=== PATIENT | male | born 2005 | race Caucasian/White ===

== ENCOUNTER 2025-01-20 10:40 | Inpatient (IN) ==
[2025-01-20] MEDS: ONDANSETRON INJ 2 MG/ML 2 ML VIAL IV STA (11:16)
[2025-01-20] MEDS: SODIUM CHLORIDE 0.9% 1,000 ML IV SCH (11:16)
[2025-01-20] MEDS: KETOROLAC TROMETHAMINE 15 MG/ML VIAL IV ONE (11:17)
[2025-01-20 11:25] LABS: Hematocrit (blood only) 42.4 % (42.0-52.0); Hemoglobin 14.1 g/dl (14.0-18.0); Mean Corpuscular Hemoglobin 29.1 pg (25.0-34.0); Mean Corpuscular Volume 87.6 fL (80.0-100.0); Platelet Count 280 K/uL (130-400); RDW Standard Deviation 39.3 fL (36.4-46.3); Red Blood Count 4.84 M/uL (4.70-6.10); White Blood Count 21.41 K/ul (4.8-10.8)
[2025-01-20 11:45] LABS: Alanine Aminotransferase 31.0 U/L (7-52); Albumin Globulin Ratio 1.1 (0.9-2); Albumin Level 4.0 gm/dl (3.4-5.0); Alkaline Phosphatase 82.0 U/L (34-104); Anion Gap 7.0 (3-11); Bilirubin,Total 0.7 mg/dl (0.2-1.0); Blood Urea Nitrogen 14.0 mg/dl (6-23); Calcium 9.2 mg/dl (8.6-10.3); Carbon Dioxide 30.0 mmol/L (21-32); Chloride 96.0 mmol/L (98-107); Creatinine Clr Calc Pharmacy 123.0 ml/min; Globulin 3.5 gm/dl (2.5-4.0); Glucose 96.0 mg/dl (70-99(Fasting)); Potassium 4.0 mmol/L (3.5-5.1); Sodium 133.0 mmol/L (136-145); Total Protein 7.5 gm/dl (6.0-8.3)
[2025-01-20 11:50] LABS: ALC (manual) 10.28 K/uL (1.2-3.4); ANC (manual) 9.42 K/uL (1.4-6.5); RBC Morphology Unremarkable; Reactive Lymphocytes # (manual) 5.99 K/uL; Reactive Lymphocytes % (manual) 28 %
--- NOTE | 2025-01-20 12:03 | Emergency Department Note ---
ED Provider Note History of Present Illness Chief Complaint: Throat Pain Stated Complaint: MONO, THROAT PAIN, TROUBLE BREATHING Time Seen by Provider: 01/20/25 11:51 Source: patient Mode of arrival: ambulatory Limitations: no limitations Patient is a 19-year-old male who presents to the emergency department with complaints of persistent and worsening throat pain and difficulty breathing. Patient states that he was diagnosed with mono at [facility] and given a taper course of prednisone but reports that his symptoms have not improved and he feels that they may have significant somewhat worsened. Patient states that it is painful to swallow and he has a lot of saliva production but does not have any significant difficulty breathing. Patient is concerned that there could be something more going on than just the mono. Patient denies any abdominal pain, nausea or chest pain. Home Medications Medication Instructions Recorded Confirmed Type cetirizine 10 mg tablet 10 mg PO DAILY 01/20/25 01/20/25 History dexmethylphenidate 20 mg 20 mg PO DAILY 01/20/25 01/20/25 History capsule,extended release [id number] (Focalin XR) doxycycline hyclate 100 mg capsule 100 mg PO BID 10 days #20 caps 01/21/25 Rx methylprednisolone 4 mg tablets in 4 mg PO DAILY #21 ea 01/21/25 Rx a dose pack (Medrol (Basilio)) Allergies Allergy/AdvReac Type Severity Reaction Status Date / Time amoxicillin [From Augmentin] Allergy Rash Verified 01/20/25 20:07 clavulanic acid Allergy Rash Verified 01/20/25 20:07 [From Augmentin] Past Med/Surg History Problem List (Updated 01/21/25 @ 11:11 by Ladan Armenta PA-C) Acute sinusitis Throat pain Mononucleosis (Acute) Peritonsillar abscess (Acute) Social History Smoking Status: Never smoker Hx Alcohol Use: Yes Hx Substance Use: No Preferred Language: Greenlandic Communication Ability: Effective High Value Associate Required: No Beliefs That Will Affect Care: None Current Living Situation: Alone Current Living Situation Comment: with roomates Feels Safe at Home: Yes Assistive Devices: None Physical Exam Vital Signs Vital Signs - 24 hr 01/20/25 10:51 01/20/25 11:57 01/20/25 11:57 Temperature 37.9 C H 37.6 C H Temperature Source Skin Oral Pulse Rate 109 H 91 H Pulse Rate [Apical] 94 H Pulse Rhythm [Apical] Pulse Strength [Apical] Normal Respiratory Rate 20 17 18 Respiratory Effort / Characteristics Non-Labored Spontaneous Non-Labored Spontaneous Respiratory Depth Normal Normal Respiratory Pattern Regular Regular Blood Pressure 135/75 Blood Pressure [Right Arm] 145/82 H Blood Pressure Mean 95 Blood Pressure Mean [Right Arm] 103 Blood Pressure Position [Right Arm] Sitting Pulse Oximetry 98 97 97 Oxygen Delivery Method Room Air Room Air Room Air Sepsis Recent Fever Within 48 Hours No Sepsis New/Unexplained Change in Mental Status N/A Sepsis Action Taken by Nursing No Action Required 01/20/25 12:22 01/20/25 13:00 Temperature Temperature Source Pulse Rate 90 Pulse Rate [Apical] 72 Pulse Rhythm [Apical] Regular Pulse Strength [Apical] Normal Respiratory Rate 16 Respiratory Effort / Characteristics Non-Labored Spontaneous Respiratory Depth Normal Respiratory Pattern Regular Blood Pressure Blood Pressure [Right Arm] 142/62 H Blood Pressure Mean Blood Pressure Mean [Right Arm] 88 Blood Pressure Position [Right Arm] Lying Pulse Oximetry 94 Oxygen Delivery Method Room Air Sepsis Recent Fever Within 48 Hours Sepsis New/Unexplained Change in Mental Status Sepsis Action Taken by Nursing VITAL SIGNS - Vital signs and nursing notes were reviewed. GENERAL -19-year-old male appearing their stated age, who is in no acute distress. Communicates well with provider and answers questions appropriately. HEAD - Normocephalic, Atraumatic. No Garner's Sign or Raccoon's Eyes. No depressed skull fractures palpable. EYES - PERRL with EOMI bilaterally. Sclera anicteric. Conjunctiva pink and moist with no injection noted. EARS - No deformities of external structures noted on gross examination bilaterally. NOSE - Midline and without cyanosis. No epistaxis or purulent drainage noted. MOUTH/OROPHARYNX - Without perioral cyanosis. Buccal mucosa pink and moist and without leukoplakia. Patient does not have any significant airway erythema and patient's airway is patent. Patient has some generalized edema noted, not significantly more edematous on either side. No white patches or signs of strep throat noted. NECK - Neck with FROM. Supple to palpation. No lymphadenopathy noted. LUNGS - Chest wall symmetric without accessory muscle use, intercostals retractions, or central cyanosis. Normal vesicular breath sounds CTA B/L. No wheezes, rales, or rhonchi appreciated. CARDIAC - RRR with S1/S2. No murmur, rubs, or gallops appreciated. EXTREMITIES - No edema present. +5/5 strength noted in UE/LE bilaterally. NEUROLOGIC -Sensory intact to light touch throughout. PSYCH - A&Ox3 and cooperates fully with examiner. Pt is very pleasant and interacts well with examiner Course Administered Medications Discontinued Medications Dexamethasone Sodium Phosphate (DexamethasonePf 10 Mg/Ml Vial) 10 mg IV NOW ONE Stop: 01/20/25 13:47 Last Admin: 01/20/25 14:08 Dose: 10 mg Documented By[place] [facility] [place] Doxycycline Hyclate (Doxycycline Hyclate 100 Mg Cap) 100 mg PO NOW STA Stop: 01/20/25 13:47 Last Admin: 01/20/25 14:08 Dose: 100 mg Documented By: [facility] [place] Sodium Chloride (Nss) 1,000 mls @ 999 mls/hr IV .Q1H1M BINTA Stop: 01/20/25 12:15 Last Infusion: 01/20/25 13:14 Dose: Infused Documented By: [facility] [place] Admin: 01/20/25 11:16 Dose: 999 mls/hr Documented By: CHLOE Acetaminophen (Ofirmev) 1,000 mg in 100 mls @ 400 mls/hr IV NOW STA Stop: 01/20/25 12:16 Last Infusion: 01/20/25 13:14 Dose: Infused Documented By: [facility] [place] Admin: 01/20/25 12:07 Dose: 400 mls/hr Documented By: sly Ampicillin Sodium/Sulbactam Sodium (Unasyn) 3,000 mg in 100 mls @ 200 mls/hr IV Q6H BINTA Stop: 01/27/25 16:59 Last Infusion: 01/20/25 17:50 Dose: Infused Documented By: Infusion: 01/20/25 17:34 Dose: 0 mls/hr Documented By: Admin: 01/20/25 17:26 Dose: 200 mls/hr Documented By: CHRYSTAL Dexamethasone 4 mg/ Syringe 1 mls @ 1 mls/min IV Q12H BINTA Stop: 02/19/25 16:59 Last Admin: 01/20/25 17:20 Dose: 1 mls/min Documented By: CHRYSTAL Vancomycin HCl 1,750 mg/ (Sodium Chloride) 535 mls @ 200 mls/hr IV ONE ONE Stop: 01/20/25 20:40 Last Infusion: 01/20/25 23:39 Dose: Infused Documented By: psc Infusion: 01/20/25 21:31 Dose: 100 mls/hr Documented By: Infusion: 01/20/25 20:52 Dose: 0 mls/hr Documented By: Admin: 01/20/25 18:37 Dose: 200 mls/hr Documented By: CHRYSTAL Dexamethasone 10 mg/ Syringe 2.5 mls @ 1 mls/min IV Q6H BINTA Stop: 02/19/25 22:59 Last Admin: 01/21/25 05:17 Dose: 1 mls/min Documented By: psc Admin: 01/20/25 23:34 Dose: 1 mls/min Documented By: psc Vancomycin HCl 1,500 mg/ (Sodium Chloride) 530 mls @ 100 mls/hr IV Q12H BINTA Stop: 01/28/25 02:59 Last Infusion: 01/21/25 09:06 Dose: Infused Documented By: Admin: 01/21/25 03:16 Dose: 100 mls/hr Documented By: annalise Ioversol (Optiray 320 100ml) 94 ml IV ONCE ONE Stop: 01/20/25 12:33 Last Admin: 01/20/25 12:33 Dose: 94 ml Documented By: LAI Ketorolac Tromethamine (Ketorolac Tromethamine 15 Mg/Ml Vial) 10 mg IV NOW ONE Stop: 01/20/25 11:14 Last Admin: 01/20/25 11:17 Dose: 10 mg Documented By: CHLOE Ondansetron HCl (Ondansetron Inj 2 Mg/Ml 2 Ml Vial) 4 mg IV NOW STA Stop: 01/20/25 11:14 Last Admin: 01/20/25 11:16 Dose: 4 mg Documented By: CHLOE Medical Decision Making Differential Diagnosis Howard, strep throat, peritonsillar abscess, viral infection, sinusitis, among others Medical Records Attestation: I reviewed the patient's medical records. Home Medications was personally reviewed by me Laboratory Data Attestation: I reviewed the patient's lab results. 01/21/25 06:53 01/21/25 06:53 Lab Results 01/20/25 Range/Units 11:14 WBC 21.41 H (4.8-10.8) K/ul RBC 4.84 (4.70-6.10) M/uL Hgb 14.1 (14.0-18.0) g/dl Hct 42.4 (42.0-52.0) % MCV 87.6 (80.0-100.0) fL MCH 29.1 (25.0-34.0) pg MCHC 33.3 (32.0-36.0) g/dL RDW Std Deviation 39.3 (36.4-46.3) fL RDW Coeff of Ho 12.3 (11.5-14.5) % Plt Count 280 (130-400) K/uL MPV 8.9 L (9.4-12.4) fL Neutrophils % (Manual) 44 % Lymphocytes % (Manual) 20 % Reactive Lymphs % (Man) 28 % Monocytes % (Manual) 6 % Basophils % (Manual) 1 % Metamyelocytes % (Man) 1 % Neutrophils # (Manual) 9.42 H (1.40-6.50) K/uL Total Absolute Neuts 9.42 H (1.4-6.5) K/uL Lymphocytes # (Manual) 4.28 H (1.2-3.4) K/uL Reactive Lymphs # 5.99 K/uL Total Abs Lymphocytes 10.28 H (1.2-3.4) K/uL Monocytes # (Manual) 1.28 H (0.11-0.59) K/uL Basophils # (Manual) 0.21 H (0-0.2) K/uL Metamyelocytes # (Man) 0.21 H (0-0) K/uL RBC Morphology Unremarkable Sodium 133 L (136-145) mmol/L Potassium 4.0 (3.5-5.1) mmol/L Chloride 96 L (98-107) mmol/L Carbon Dioxide 30 (21-32) mmol/L Anion Gap 7 (3-11) BUN 14 (6-23) mg/dl Creatinine 1.06 (0.6-1.4) mg/dl Est Cr Clr Drug Dosing 123.0 ml/min eGFR 103.68 BUN/Creatinine Ratio 13.2 (10-20) Glucose 96 (70-99(Fasting)) mg/dl Calcium 9.2 (8.6-10.3) mg/dl Total Bilirubin 0.7 (0.2-1.0) mg/dl AST 25 (13-39) U/L ALT 31 (7-52) U/L Alkaline Phosphatase 82 (34-104) U/L Total Protein 7.5 (6.0-8.3) gm/dl Albumin 4.0 (3.4-5.0) gm/dl Globulin 3.5 (2.5-4.0) gm/dl Albumin/Globulin Ratio 1.1 (0.9-2) Group A Strep (PCR) NOT DETECTED (NotDetected) Imaging Data Radiologist's Impression: Soft Tissue Neck CT 01/20/25 12:02 EXAM: CT Neck With Intravenous Contrast INDICATION: Persistent sore throat. TECHNIQUE: Axial computed tomography images of the neck with intravenous contrast. Sagittal and coronal reformatted images were created and reviewed. This CT exam was performed using one or more of the following dose reduction techniques: automated exposure control, adjustment of the mA and/or kV according to patient size, and/or use of iterative reconstruction technique. CONTRAST: 94 ml of Optiray 320 was administered intravenously. COMPARISON: No relevant prior studies available. FINDINGS: Nasopharynx: Mild prominence of the adenoids. Oropharynx: There is bilateral tonsillar edema. There is a slightly rim-enhancing left peritonsillar collection measuring 9 mm diameter. No associated gas. Incidental right tonsillar concretion. Hypopharynx: No abnormality noted. Larynx: No abnormality noted. Normal epiglottis. Trachea: No abnormality noted. Retropharyngeal space: No abnormality noted. Submandibular/parotid glands: See below. Thyroid: No abnormality noted. Bones/joints: No acute changes. Soft tissues: No significant abnormality noted. Vasculature: No acute abnormality noted. Lymph nodes: Multicompartment shotty cervical, submandibular and submental lymph nodes present. Sinuses: Moderate chronic left maxillary and mild left ethmoid and frontal chronic sinus thickening. Lung apices: No significant abnormality noted. IMPRESSION: 1. Bilateral tonsillitis with a 9 mm developing left peritonsillar abscess not particularly loculated. 2. Extensive reactive bilateral adenopathy. Impression chronic left maxillary, ethmoid and frontal sinus disease. ACT 112: N/A Electronically signed by Sondra Meng 01-20-2025 13:03 PM MDM Narrative Patient is a 19-year-old male who presents to the emergency department with complaints of persistent and worsening throat pain and difficulty breathing. Patient states that he was diagnosed with mono at [facility] and given a taper course of prednisone but reports that his symptoms have not improved and he feels that they may have significant somewhat worsened. Patient states that it is painful to swallow and he has a lot of saliva production but does not have any significant difficulty breathing. Patient is concerned that there could be something more going on than just the mono. Patient denies any abdominal pain, nausea or chest pain. Patient was evaluated by myself and findings were noted in the physical exam above. Patient was ordered IV placement, lab work, strep swab, Toradol for his discomfort, Zofran for nausea, and a CT of the soft tissues of the neck. Patient's lab work resulted with an elevated white blood cell count of 21.41. Patient did have a course of steroids over the last week however his white count is still significantly high for him. Patient did not have any signs of anemia with a hemoglobin of 14.1 hematocrit of 42.4. Patient did not have any significant electrolyte imbalance noted. Patient also had a strep swab that resulted negative. Patient had a low-grade fever upon his arrival to the emergency department with a temperature of 37.6 C. Patient was given a dose of IV Tylenol. Upon reevaluation the patient's temp had come down quite a bit and he was 37.[address] Patient [address] a [address] of the soft tissue of the neck completed which was interpreted by radiology to note a bilateral tonsillitis with a 9 mm developing left peritonsillar abscess that was not particularly loculated. There was extensive reactive bilateral adenopathy with the impression of a chronic left maxillary, ethmoid and frontal sinus disease. I reached out and spoke with Dr. Avila who is on-call for ENT today. I gave him a full report of the patient's chief complaint, current status and the results of his imaging and lab work. I discussed with Dr. Avila that my plan was to give him IV Decadron and start him on a course of antibiotics and have him follow-up in the outpatient setting. He agreed that that was a reasonable plan. He suggested starting the patient back on a higher dose of steroids and start him on doxycycline to avoid any rashes with him having mono. I discussed this plan with the patient the patient was uneasy about not being admitted to the hospital with an elevated white blood cell count and difficulty with swallowing. Patient's father was on the phone when I discussed the results with him and he also verbalized that he thinks it would be safer for the patient to stay in the hospital overnight to be monitored since he has not had any intake of fluids or food over the last several days because of the discomfort that he is having with swallowing. Patient verbalized agreement and stated that he would feel better about being admitted to the hospital where he can get IV fluids and the IV Decadron [id number] to help with the symptoms that he is experiencing. I briefly touched on the possibility of admission when speaking with Dr. Avila and he agreed that it could be a reasonable option and would be aggressive with IV steroids if the patient did end up staying in the hospital. I discussed the plan for admission with the patient and his father and they both verbalized understanding are agreeable to that plan. I reached out to the [facility] hospitalist group and Dr. Quiroga was agreeable to admit the patient under his service for further evaluation and management. [facility] and management of this patient. Impression Peritonsillar abscess, Mononucleosis Discharge Plan Visit Data Chief Complaint: Throat Pain Stated Complaint: MONO, THROAT PAIN, TROUBLE BREATHING ED Provider: Cheko Woodson ED Midlevel Provider: Saadia Nunez Discharge Problem: Peritonsillar abscess, Mononucleosis Patient Disposition: Admitted As Inpatient Condition: Fair Discharge Instructions Interventions: ED Discharge Assessment Last Done: 01/20/25 16:13 ED DC CONDITION Conditon at Discharge Condition at Discharge: Fair Discharge Problem: Mononucleosis Qualifiers: Infectious mononucleosis etiology: unspecified organism Infectious mononucleosis complication: without complication Qualified Code(s): B27.90 - Infectious mononucleosis, unspecified without complication
[2025-01-20] MEDS: ACETAMINOPHEN 1,000 MG/100 ML VIAL IV STA (12:07)
[2025-01-20] MEDS: OPTIRAY 320 100ml IV ONE (12:33)
--- NOTE | 2025-01-20 13:03 | CT Scan Report ---
EXAM: CT Neck With Intravenous Contrast INDICATION: Persistent sore throat. TECHNIQUE: Axial computed tomography images of the neck with intravenous contrast. Sagittal and coronal reformatted images were created and reviewed. This CT exam was performed using one or more of the following dose reduction techniques: automated exposure control, adjustment of the mA and/or kV according to patient size, and/or use of iterative reconstruction technique. CONTRAST: 94 ml of Optiray 320 was administered intravenously. COMPARISON: No relevant prior studies available. FINDINGS: Nasopharynx: Mild prominence of the adenoids. Oropharynx: There is bilateral tonsillar edema. There is a slightly rim-enhancing left peritonsillar collection measuring 9 mm diameter. No associated gas. Incidental right tonsillar concretion. Hypopharynx: No abnormality noted. Larynx: No abnormality noted. Normal epiglottis. Trachea: No abnormality noted. Retropharyngeal space: No abnormality noted. Submandibular/parotid glands: See below. Thyroid: No abnormality noted. Bones/joints: No acute changes. Soft tissues: No significant abnormality noted. Vasculature: No acute abnormality noted. Lymph nodes: Multicompartment shotty cervical, submandibular and submental lymph nodes present. Sinuses: Moderate chronic left maxillary and mild left ethmoid and frontal chronic sinus thickening. Lung apices: No significant abnormality noted. IMPRESSION: 1. Bilateral tonsillitis with a 9 mm developing left peritonsillar abscess not particularly loculated. 2. Extensive reactive bilateral adenopathy. Impression chronic left maxillary, ethmoid and frontal sinus disease. ACT 112: N/A Electronically signed by Sondra Meng 01-20-2025 13:03 PM
[2025-01-20] MEDS: DOXYCYCLINE HYCLATE 100 MG CAP PO STA (14:08)
[2025-01-20] MEDS: dexAMETHasone**PF** 10 MG/ML VIAL IV ONE (14:08)
--- NOTE | 2025-01-20 14:41 | History & Physical Report ---
Date of Service January 20, 2025 Assessment & Plan (1) Peritonsillar abscess: Plan: Patient presents to the hospital on account of worsening sore throat difficulty swallowing, fevers and chills. CT scan showed evidence of peritonsillar abscess and reactive lymphadenopathy. Febrile, WBC 21,000 Strp test negative Will start IV Unasyn, dexamethasone, Toradol Consult ENT Monitor breathing for respiratory compromise Plan Admit to [facility] Full code History of Present Illness Chief Complaint: Sore throat Primary Care Provider: [facility] This is a 19-year-old male with no significant past medical history who presents to the hospital today on account of sore throat which started a few days ago. According to the patient he has been having the pain whenever he swallows but over the past couple of days it got worse. He also endorses some fever neck swelling. Here in the emergency department strep test was negative however soft tissue neck CT scan showed evidence of bilateral tonsillar edema and the left peritonsillar collection measuring 9 mm. Also showed extensive reactive bilateral adenopathy. WBC was 21,000. Cultures are been obtained patient has been procalcitonin IV antibiotics and will be admitted to hospital further management. Past Med/Surg History Problem List (Updated 01/20/25 @ 14:39 by Oren Quiroga MD) Peritonsillar abscess Social History Smoking Status: Never smoker Feels Safe at Home: Yes Review of Systems Review of Systems: All systems reviewed are negative, apart from the ones contained in the history. Physical Exam Physical Exam: The patient is awake, alert and oriented 3, well developed and well nourished, normocephalic and atraumatic, lying in bed and in no acute distress. HEENT--PERRL, EOMI, mucous membranes and oropharynx mildly dry Neck-Lymphadenopathy Heart--normal S1 and S2. No murmurs, rubs or gallops. Lungs--clear bilaterally, no respiratory distress, no accessory muscle use. Abdomen--normal bowel sounds and soft. Extremities--no cyanosis or clubbing. No edema. Dermatologic--normal skin turgor, normal color, no abnormal lymph nodes, no rash. Neurologic--cranial nerves II through XII grossly intact. Rheumatologic--normal range of motion. Psychiatric--normal affect. Results & Data Results & Data Vital Signs (Past 12 Hours) Vital Signs Temp Pulse Pulse Resp BP BP Pulse Ox 01/20/25 13:00 72 16 142/62 H 94 01/20/25 12:22 90 01/20/25 11:57 91 H 18 97 01/20/25 11:57 99.7 F H 94 H 17 145/82 H 97 01/20/25 10:51 100.2 F H 109 H 20 135/75 98 O2 Del Method 01/20/25 13:00 Room Air 01/20/25 12:22 01/20/25 11:57 Room Air 01/20/25 11:57 Room Air 01/20/25 10:51 Room Air PG Care Time/CCT Total # of Minutes Spent Total Time Spent with Patient: Total time spent is greater than 50% in coordination of care (as documented) at patient's floor/unit and/or counseling patient: Coding Level of Care Code 90600 INT INP/OBS CARE 2/55MIN Diagnoses Peritonsillar abscess J36 Time Spent (min) 55
[2025-01-20] MEDS ORDERED: ACETAMINOPHEN 325 MG TAB PO PRN (16:29)
[2025-01-20] MEDS ORDERED: DEXAMETHASONE SOD INJ 4 MG/ML VIAL IV SCH (16:29)
[2025-01-20] MEDS ORDERED: ONDANSETRON INJ 2 MG/ML 2 ML VIAL IV PRN (16:29)
[2025-01-20] MEDS ORDERED: KETOROLAC TROMETHAMINE 15 MG/ML VIAL IV PRN (16:29)
[2025-01-20] MEDS: dexAMETHasone 4 MG in SYRINGE 0 ML IV SCH (17:20)
[2025-01-20] MEDS: AMPICILLIN/SULBACTAM SOD 3,000 MG/100 ML BAG IV SCH (17:26)
[2025-01-20] MEDS ORDERED: VANCOMYCIN CONSULT ACTIVE PRN (17:48)
--- NOTE | 2025-01-20 17:58 | ENT Consultation ---
Date of Consultation January 20, 2025 Assessment & Plan (1) Mononucleosis: (2) Throat pain: (3) Acute sinusitis: Plan Diagnoses : [place] / peritonsillar abscess - FACILITIES OFFICER / acute sinusitis Case was discussed w ED this am The abscess is too small to merit drainage. Undr most circumstances these will resolve w medical mgmt, unless his clinical course should change. Recommend 1) his Unasyn should be d/c'ed. See my note above re rash w penicillins/mono. Change to alternative IV antibiotic. 2) I would increase his decadron to 10 mg IV Q6h (from 4 mg IV q12h) 3) continue IV hydration 4) Recommend at discharge he be sent w ~10d of doxy (for the sinusitis) and either a medrol dose emmie or a new prednisone taper starting with a HIGHER dose (ie 60mg) and tapering from there over 10 days Will be happy to reevaluate if necessary but I expect he will continue to improve (as he is already) and should be fine for d/c in am. History of Present Illness Reason for Consultation: [place], small FACILITIES OFFICER Requesting Physician: Dr. Quiroga Attending Physician: Oren Quiroga MD History of Present Illness Hx - flu week before last - that followed with a sinusitis - had concomitant sore throat - put on augmentin for the sinusitis and developed a rash - subsequently (~6d ago) tested + for the rash. Penicillin rashes are not uncommon with mono. - today came in w complaints of persistent and worsening throat pain and difficulty breathing. - at [facility] and given a taper course of prednisone (40 mg x 2 d, 20 mg x 2 d tapering) but reports that his symptoms have not improved and he feels that they may have significant somewhat worsened. Patient states that it is painful to swallow and he has a lot of saliva production but does not have any significant difficulty breathing. - + hx prior strep but not recurent - no prior FACILITIES OFFICER - no chronic sinus issues - voice okay - feels much better already after the IV fluids and steroids - nurse was hanging Unasyn when I arrived - CT reviewed. Very small 9 mm abscess / phlegmon over lt tonsil Allergies Allergy/AdvReac Type Severity Reaction Status Date / Time No Known Allergies Allergy Unverified 01/20/25 16:29 Home Medications Medication Instructions Recorded Confirmed Type cetirizine 10 mg tablet 10 mg PO DAILY 01/20/25 01/20/25 History dexmethylphenidate 20 mg 20 mg PO DAILY 01/20/25 01/20/25 History capsule,extended release [id number] (Focalin XR) prednisone 20 mg tablet 20 mg PO UD 01/20/25 01/20/25 History Patient History Social History Smoking Status: Never smoker Hx Alcohol Use: Yes Hx Substance Use: No Preferred Language: Libyan Communication Ability: Effective Silo Man Required: No Beliefs That Will Affect Care: None Current Living Situation: Alone Current Living Situation Comment: with roomates Feels Safe at Home: Yes Assistive Devices: None Review of Systems Ear, Nose, Mouth, Throat: as per Subjective / HPI Physical Exam Physical Exam: General: No acute distress, nonlabored respirations Face: normal facial motion Eyes: Extraocular motion is intact. Normal sclera and conjunctiva Ears: External auditory canals are clear. Tympanic membrane is intact and the middle ear is aerated bilaterally. Nose: no external deformity, nares patent. No rhinorrhea or epistaxis. Oral cavity: clear Oropharynx: Tonsils enl bilat w exudate c/w mono. Uvula midline without shift. No palatal edema / fluctuance. No clinical FACILITIES OFFICER large enough to merit I&D Neck: soft, no masses or no significant palpable lymphadenopathy (small level 2 nodes) Results & Data Vital Signs (Past 12 Hours) Vital Signs Temp Pulse Pulse Pulse Resp BP BP 01/20/25 16:33 01/20/25 16:33 36.8 C 76 18 124/70 01/20/25 15:32 37.0 C 01/20/25 14:55 83 20 132/72 01/20/25 13:00 72 16 142/62 H 01/20/25 12:22 90 01/20/25 11:57 91 H 18 01/20/25 11:57 37.6 C H 94 H 17 145/82 H 01/20/25 10:51 37.9 C H 109 H 20 135/75 Pulse Ox O2 Del Method 01/20/25 16:33 Room Air 01/20/25 16:33 96 Room Air 01/20/25 15:32 01/20/25 14:55 96 Room Air 01/20/25 13:00 94 Room Air 01/20/25 12:22 01/20/25 11:57 97 Room Air 01/20/25 11:57 97 Room Air 01/20/25 10:51 98 Room Air Laboratory Results Laboratory Results - last 24 hr 01/20/25 11:14 WBC 21.41 H RBC 4.84 Hgb 14.1 Hct 42.4 MCV 87.6 MCH 29.1 MCHC 33.3 RDW Std Deviation 39.3 RDW Coeff of Ho 12.3 Plt Count 280 MPV 8.9 L Neutrophils % (Manual) 44 Lymphocytes % (Manual) 20 Reactive Lymphs % (Man) 28 Monocytes % (Manual) 6 Basophils % (Manual) 1 Metamyelocytes % (Man) 1 Neutrophils # (Manual) 9.42 H Total Absolute Neuts 9.42 H Lymphocytes # (Manual) 4.28 H Reactive Lymphs # 5.99 Total Abs Lymphocytes 10.28 H Monocytes # (Manual) 1.28 H Basophils # (Manual) 0.21 H Metamyelocytes # (Man) 0.21 H RBC Morphology Unremarkable Sodium 133 L Potassium 4.0 Chloride 96 L Carbon Dioxide 30 Anion Gap 7 BUN 14 Creatinine 1.06 Est Cr Clr Drug Dosing 123.0 eGFR 103.68 BUN/Creatinine Ratio 13.2 Glucose 96 Calcium 9.2 Total Bilirubin 0.7 AST 25 ALT 31 Alkaline Phosphatase 82 Total Protein 7.5 Albumin 4.0 Globulin 3.5 Albumin/Globulin Ratio 1.1 Group A Strep (PCR) NOT DETECTED Diagnostic Findings Soft Tissue Neck CT 01/20/25 12:02 EXAM: CT Neck With Intravenous Contrast INDICATION: Persistent sore throat. TECHNIQUE: Axial computed tomography images of the neck with intravenous contrast. Sagittal and coronal reformatted images were created and reviewed. This CT exam was performed using one or more of the following dose reduction techniques: automated exposure control, adjustment of the mA and/or kV according to patient size, and/or use of iterative reconstruction technique. CONTRAST: 94 ml of Optiray 320 was administered intravenously. COMPARISON: No relevant prior studies available. FINDINGS: Nasopharynx: Mild prominence of the adenoids. Oropharynx: There is bilateral tonsillar edema. There is a slightly rim-enhancing left peritonsillar collection measuring 9 mm diameter. No associated gas. Incidental right tonsillar concretion. Hypopharynx: No abnormality noted. Larynx: No abnormality noted. Normal epiglottis. Trachea: No abnormality noted. Retropharyngeal space: No abnormality noted. Submandibular/parotid glands: See below. Thyroid: No abnormality noted. Bones/joints: No acute changes. Soft tissues: No significant abnormality noted. Vasculature: No acute abnormality noted. Lymph nodes: Multicompartment shotty cervical, submandibular and submental lymph nodes present. Sinuses: Moderate chronic left maxillary and mild left ethmoid and frontal chronic sinus thickening. Lung apices: No significant abnormality noted. IMPRESSION: 1. Bilateral tonsillitis with a 9 mm developing left peritonsillar abscess not particularly loculated. 2. Extensive reactive bilateral adenopathy. Impression chronic left maxillary, ethmoid and frontal sinus disease. ACT 112: N/A Electronically signed by Sondra Meng 01-20-2025 13:03 PM PG Care Time/CCT Total # of Minutes Spent Total Time Spent with Patient: Total time spent is greater than 50% in coordination of care (as documented) at patient's floor/unit and/or counseling patient: Coding Level of Care Code 74174 IN/OBS CONSULT LVL 3,45M Diagnoses Mononucleosis B27.90 Infectious mononucleosis complication: without complication Infectious mononucleosis etiology: unspecified organism Throat pain R07.0 Acute non-recurrent maxillary sinusitis J01.00 Recurrence: non-recurrent Sinusitis location: maxillary (1) Mononucleosis Infectious mononucleosis complication: without complication Infectious mononucleosis etiology: unspecified organism Qualified Code(s): B27.90 - Infectious mononucleosis, unspecified without complication (3) Acute sinusitis Recurrence: non-recurrent Sinusitis location: maxillary Qualified Code(s): J01.00 - Acute maxillary sinusitis, unspecified
[2025-01-20] MEDS ORDERED: Nursing to Pharmacy Communication SCH (18:30)
[2025-01-20] MEDS: VANCOMYCIN HCL 1,750 MG in SODIUM CHLORIDE 0.9% 500 ML IV ONE (18:37)
[2025-01-20] MEDS ORDERED: VANCOMYCIN CONSULT ACTIVE SCH (19:57)
--- NOTE | 2025-01-20 21:41 | Communication Note ---
Date of Service: January 20, 2025 Alerted via TT by nurse around 2099 that pt noting red chest, neck, and face that started around 2049. He is on IV vanc for peritonsillar abscess. Went to bedside to assess, pt's mom present at bedside as well. Pt does have face, neck, and chest erythema, mild. No erythema elsewhere, not itchy, not painful. He reports no difficulty breathing and states he feels well and only really noticed it when his mom came in and noticed he was red. Recently he was on amoxicillin and got a rash with that. Pt showed me a picture of the recent rash which was diffuse and maculopapular in nature, unlike current rash with is continuous and not raised. Suspect secondary to vancomycin infusion. Given reaction very mild and vitals stable and pt essentially asymptomatic otherwise, will restart vanc at half rate. If rash worsens/progresses would consider treating with IV benadryl 50 mg + famotidine and pause infusion for some time. Resident Activity Tracking Resident Involvement: Resident Care Provided Care Provided: Adult Hospital Medicine
[2025-01-20] MEDS: dexAMETHasone 10 MG in SYRINGE 0 ML IV SCH (23:34)
[2025-01-21] MEDS: VANCOMYCIN HCL 1,500 MG in SODIUM CHLORIDE 0.9% 500 ML IV SCH (03:16)
[2025-01-21 07:15] LABS: Hematocrit (blood only) 42.1 % (42.0-52.0); Hemoglobin 13.9 g/dl (14.0-18.0); Mean Corpuscular Hemoglobin 28.8 pg (25.0-34.0); Mean Corpuscular Volume 87.2 fL (80.0-100.0); Platelet Count 302 K/uL (130-400); RDW Standard Deviation 39.4 fL (36.4-46.3); Red Blood Count 4.83 M/uL (4.70-6.10); White Blood Count 13.67 K/ul (4.8-10.8)
[2025-01-21 07:54] LABS: Anion Gap 5.0 (3-11); Blood Urea Nitrogen 19.0 mg/dl (6-23); Calcium 9.2 mg/dl (8.6-10.3); Carbon Dioxide 30.0 mmol/L (21-32); Chloride 102.0 mmol/L (98-107); Creatinine Clr Calc Pharmacy 149.9 ml/min; Glucose 135.0 mg/dl (70-99(Fasting)); Potassium 4.8 mmol/L (3.5-5.1); Sodium 137.0 mmol/L (136-145)
--- NOTE | 2025-01-21 11:18 | Discharge Summary ---
Discharge Summary Date of Service January 21, 2025 Principal Dx & Hospital Course #1 = Principal Diagnosis (1) Peritonsillar abscess: Patient presents to the hospital on account of worsening sore throat difficulty swallowing, fevers and chills. Tested positive for mono at outside facility on 01/15. strep test negative. CT scan showed evidence of peritonsillar abscess and reactive lymphadenopathy. ENT consultedabscess is not large enough for draina ge, recommend increasing his steroids continuing IV hydration. Switching antibiotics to doxycycline for the sinusitis. Leukocytosis is improving, clinically his symptoms are improved and he is tolerating a regular diet without difficulty. Will be discharged home with doxycycline and Medrol Dosepak per ENT recommendations. Advised no contact sports or strenuous activity for 4 weeks. Mother updated at bedside 01/21 Admission HPI Per Admitting Provider This is a 19-year-old male with no significant past medical history who presents to the hospital today on account of sore throat which started a few days ago. According to the patient he has been having the pain whenever he swallows but over the past couple of days it got worse. He also endorses some fever neck swelling. Here in the emergency department strep test was negative however soft tissue neck CT scan showed evidence of bilateral tonsillar edema and the left peritonsillar collection measuring 9 mm. Also showed extensive reactive bilateral adenopathy. WBC was 21,000. Cultures are been obtained patient has been procalcitonin IV antibiotics and will be admitted to hospital further management. Discharge Exam General: NAD, VS as above HEENT: 2+ tonsils bilaterally with mild erythema, tolerating secretions. No stridor. positive enlarged lymph nodes Resp: normal respiratory effort, lungs clear to auscultation CV: RRR, no murmur, Abd: normal bowel sounds, non tender, no hepatosplenomegaly Extremities: Moves all extremities, no edema Neuro: A&O x3, Skin: Rash over chest abdomen and upper extremities. Not itchy or painful Discharge Plan Discharge Items Patient Disposition: Home - Self-Care Reason For Visit: SORE THROAT, PERITONSILAR ABSCESS Discharge Diagnosis: [place], Peritonsillar abscess Condition on Discharge: Fair Activity: As commented below Activity Comment: take it easy, no strenous activity Weightbearing: Full weightbearing Non-emergency contact: Primary Care Provider Call non-emergency contact if: you have any medication questions, your symptoms worsen, your pain is not controlled and your temperature is above 101.5 Follow-up/Referrals: [facility] [Primary Care Provider] - (please call to schedule follow appointment within one week ) Diet: Regular Diet Texture: Easy to Chew Addtl Attending Provider Instructions: Mr. Moore, You were hospitalized after having worse sore throat and difficulty swallowing caused by your monoinfection and a peritonsillar abscess. You were seen by ENT who did not recommend drainage of the abscess as it is too small but to continue on antibiotics and steroids. You have greatly improved with IV steroids and antibiotics and will be discharged home. It is important that you get adequate rest over the next few days to weeks so that your body can heal appropriately. There is no medicine to cure mono it just needs time, and medicine will help the symptoms. Is important that you stay adequately hydrated and ensure good protein intake for proper healing. Please do not engage in strenuous activity or contact sports for 4 weeks. You are still contagious so do not share drinks, this can also spread through kissing. Please refrain from alcohol and smoking. doxycyclineis the antibiotic take this twice a day, first dose this is you pick it up. You should take this with food. Can cause upset stomach and sun sensitivity. Make sure you are wearing sunscreen if you are in the sun Medrol Dosepakthis is the steroid that you have been given, take the first dose on 9/30 a.m. and follow the instruction of the pack for dosing if you having repeat rash and it is itchy or painful you should be seen by healthcare provider. you can try to take allergy medicine or Benadryl, topical Benadryl cream or hydrocortisone. If it is not itchy or painful it is likely a side effect of having the mononucleosis virus and should get better over time you can use Tylenol ibuprofen for pain. Make sure you are staying adequately hydrated. Activity: You can do normal everyday activities as your body allows. Take rest breaks if you feel tired. Do not overexert. Stop activity if you have pain, shortness of breath or feel dizzy. Follow-up appointments: Make an appointment with your primary care physician within one week of discharge. A copy of this summary will be sent to them. Every time you see your primary care physician, or any other doctor, bring your medication list, and a list of questions. You need to call [facility] to make an appointment. If you have any problems with missing classes please contact the student The student care & advocacy office CONTACT YOUR PRIMARY CARE PROVIDER if you experience any of the following: Shortness of breath or difficulty breathing Fevers or chills Feeling tired with normal activity or experiencing dizziness or fainting Difficulty following your treatment plan, or difficulty taking medications CALL 911 OR GO TO THE EMERGENCY DEPARTMENT if you experience any of the following: Severe abdominal pain or nausea/vomiting Severe chest pain, or chest pain that radiates (moves) to your jaw or arm Sudden, severe shortness of breath or difficulty breathing Thank you for allowing us to participate in your care. Pending Studies at Discharge: No Stand-Alone Forms: My [employer], Work/School Release, Smoking Cessation Medications and DC Order Prescriptions: New doxycycline hyclate 100 mg capsule 100 mg PO BID 10 Days Qty: 20 0RF methylprednisolone [Medrol (Basilio)] 4 mg tablets,dose pack 4 mg PO DAILY Qty: 21 0RF Rx Instructions: follow instructions on pack, start 01/22 Continued cetirizine 10 mg tablet 10 mg PO DAILY dexmethylphenidate [Focalin XR] 20 mg capsule,ER biphasic 50-50 20 mg PO DAILY Patient Comments: last filled 12/03 30 day supply Discontinued prednisone 20 mg tablet 20 mg PO UD Discharge Orders: Discharge Order (Routine); Ordered 01/21/25 Ordered By: Ladan Holliday/Other Patient Handouts: ED Mononucleosis Admission Data Admit Date/Time: 01/20/25 14:22 Attending Provider: Alexy Tabares Admit Provider: Oren Quiroga Primary Care Provider: [facility] Other Providers: Amilcar Avila; Oren Quiroga Hospital Stay Data Consultations 01/20/25 14:21 ED Decision to Admit Stat 01/20/25 16:29 Consult Oromaxillofacial Surgery Routine Diagnostic Imagining Performed Soft Tissue Neck CT 01/20/25 12:02 EXAM: CT Neck With Intravenous Contrast INDICATION: Persistent sore throat. TECHNIQUE: Axial computed tomography images of the neck with intravenous contrast. Sagittal and coronal reformatted images were created and reviewed. This CT exam was performed using one or more of the following dose reduction techniques: automated exposure control, adjustment of the mA and/or kV according to patient size, and/or use of iterative reconstruction technique. CONTRAST: 94 ml of Optiray 320 was administered intravenously. COMPARISON: No relevant prior studies available. FINDINGS: Nasopharynx: Mild prominence of the adenoids. Oropharynx: There is bilateral tonsillar edema. There is a slightly rim-enhancing left peritonsillar collection measuring 9 mm diameter. No associated gas. Incidental right tonsillar concretion. Hypopharynx: No abnormality noted. Larynx: No abnormality noted. Normal epiglottis. Trachea: No abnormality noted. Retropharyngeal space: No abnormality noted. Submandibular/parotid glands: See below. Thyroid: No abnormality noted. Bones/joints: No acute changes. Soft tissues: No significant abnormality noted. Vasculature: No acute abnormality noted. Lymph nodes: Multicompartment shotty cervical, submandibular and submental lymph nodes present. Sinuses: Moderate chronic left maxillary and mild left ethmoid and frontal chronic sinus thickening. Lung apices: No significant abnormality noted. IMPRESSION: 1. Bilateral tonsillitis with a 9 mm developing left peritonsillar abscess not particularly loculated. 2. Extensive reactive bilateral adenopathy. Impression chronic left maxillary, ethmoid and frontal sinus disease. ACT 112: N/A Electronically signed by Sondra Meng 01-20-2025 13:03 PM Pending Results Patient Have Any Pending Studies at Discharge: No Discharge Instructions Given to Patient (Per Discharging Provider) Mr. Moore, Cristiano were hospitalized after having worse sore throat and difficulty swallowing caused by your monoinfection and a peritonsillar abscess. You were seen by ENT who did not recommend drainage of the abscess as it is too small but to continue on antibiotics and steroids. You have greatly improved with IV steroids and antibiotics and will be discharged home. It is important that you get adequate rest over the next few days to weeks so that your body can heal appropriately. There is no medicine to cure mono it just needs time, and medicine will help the symptoms. Is important that you stay adequately hydrated and ensure good protein intake for proper healing. Please do not engage in strenuous activity or contact sports for 4 weeks. You are still contagious so do not share drinks, this can also spread through kissing. Please refrain from alcohol and smoking. doxycyclineis the antibiotic take this twice a day, first dose this is you pick it up. You should take this with food. Can cause upset stomach and sun sensitivity. Make sure you are wearing sunscreen if you are in the sun Medrol Dosepakthis is the steroid that you have been given, take the first dose on 9/30 a.m. and follow the instruction of the pack for dosing if you having repeat rash and it is itchy or painful you should be seen by healthcare provider. you can try to take allergy medicine or Benadryl, topical Benadryl cream or hydrocortisone. If it is not itchy or painful it is likely a side effect of having the mononucleosis virus and should get better over time you can use Tylenol ibuprofen for pain. Make sure you are staying adequately hydrated. Activity: You can do normal everyday activities as your body allows. Take rest breaks if you feel tired. Do not overexert. Stop activity if you have pain, shortness of breath or feel dizzy. Follow-up appointments: Make an appointment with your primary care physician within one week of discharge. A copy of this summary will be sent to them. Every time you see your primary care physician, or any other doctor, bring your medication list, and a list of questions. You need to call [facility] to make an appointment. If you have any problems with missing classes please contact the student The student care & advocacy office CONTACT YOUR PRIMARY CARE PROVIDER if you experience any of the following: Shortness of breath or difficulty breathing Fevers or chills Feeling tired with normal activity or experiencing dizziness or fainting Difficulty following your treatment plan, or difficulty taking medications CALL 911 OR GO TO THE EMERGENCY DEPARTMENT if you experience any of the following: Severe abdominal pain or nausea/vomiting Severe chest pain, or chest pain that radiates (moves) to your jaw or arm Sudden, severe shortness of breath or difficulty breathing Thank you for allowing us to participate in your care. Total Time Total Time Spent Total Time Spent (In Minutes): Time spent day of discharge 37 minutes including direct patient care, medication reconciliation, documentation, review of labs and images, and coordination of care. Coding Level of Care Code 81859 INP/OBS DISCH >30 MIN Diagnoses Peritonsillar abscess J36
== END 2025-01-21 13:12 | disposition home or self-care (01) | DRG 866 ==
LOC: ED 10:40 → SUATTDRO 14:22 → 3N 14:22